=== PATIENT | male | born 1935 | race Caucasian/White ===

== ENCOUNTER 2023-08-13 02:15 | Emergency (ER) | payer SELFPAY | END 2023-08-13 03:27 | LOC: DL.ED 02:15 | DX: I48.91 Unspecified atrial fibrillation (principal); I11.0 Hypertensive heart disease with heart failure; I50.9 Heart failure, unspecified; I25.10 Atherosclerotic heart disease of native coronary artery without angina pectoris; E78.00 Pure hypercholesterolemia, unspecified; E11.9 Type 2 diabetes mellitus without complications | CPT/HCPCS: 93010; 99285 ==